=== PATIENT | female | born 1995 | race Caucasian/White ===

== ENCOUNTER → 2016-09-25 | Outpatient (CLI) | payer OTHER ==
--- NOTE | 2016-09-25 11:07 | REP ---
MR BRAIN WITHOUT AND WITH CONTRAST: HISTORY: Dizziness. CONTRAST: ProHance 12 mL. There are no areas of abnormal signal intensity in the brain. There is no intraparenchymal hemorrhage, infarct, mass, or midline shift. There is no abnormal enhancement. The ventricular system is normal in appearance. There is no extracerebral collection. The sinuses are clear. IMPRESSION: There is no intracranial lesion. Signed by Colin Esparza MD 09/25/2016 11:26 A
== END ==
LOC: M PLARAD 09:39
PROVIDERS: ATTEND Family Medicine
DX: R42 Dizziness and giddiness (principal); H53.9 Unspecified visual disturbance; R29.818 Other symptoms and signs involving the nervous system; R26.89 Other abnormalities of gait and mobility; Z82.0 Family history of epilepsy and other diseases of the nervous system

== ENCOUNTER → 2016-12-25 | Outpatient (REF) | payer OTHER | LOC: M SFHCWAGY 15:15 | PROVIDERS: ATTEND Nurse Practitioner Women's Health | DX: Z12.4 Encounter for screening for malignant neoplasm of cervix (principal) ==

== ENCOUNTER → 2018-07-11 | Outpatient (CLI) | payer OTHER ==
--- NOTE | 2018-07-11 14:11 | REP ---
OB ULTRASOUND: Real-time sonographic evaluation of gravid uterus performed utilizing transabdominal and endovaginal technique. There is a single living intrauterine gestation estimated gestational age 18 weeks, EDC 12/12/2018. Today's measurements indicate appropriate growth. BPD 40 mm = 18 weeks 2 days, 56th percentile HC 147 mm = 17 weeks 6 days, 45th percentile AC 127 mm = 18 weeks 2 days, 57th percentile Femur length 26 mm = 18 weeks 0 days, 48th percentile HC/AC ratio 1.16 within normal range. Estimated weight 224 grams 51st percentile. heart rate 150 beats per minute. SEEN/GROSSLY UNREMARKABLE Lateral ventricles Yes Posterior fossa Yes Upper lip No Four-chamber heart No LVOT Yes RVOT Yes Stomach Yes Cord insertion Yes Three vessel cord Yes Kidneys Yes Bladder Yes Spine Yes position: Variable. Placenta: Posterior and grade 0 with no previa or abruption. Placenta is low lying with the inferior tip 8 mm from the internal cervical os. Amniotic fluid within normal limits. Cervix is closed and measures 4.5 cm in length. Electronically Signed by Brandon Murphy MD 07/11/2018 05:42 P
== END ==
LOC: M RAD 10:43
PROVIDERS: ATTEND Obstetrics & Gynecology
DX: O44.42 Low lying placenta NOS or without hemorrhage, second trimester (principal); Z3A.18 18 weeks gestation of pregnancy

== ENCOUNTER → 2018-08-16 | Outpatient (CLI) | payer OTHER ==
--- NOTE | 2018-08-16 18:01 | REP ---
Clinical: Anatomical evaluation. Comparison: 07/11/2018 . Findings: Examination demonstrates a single live intrauterine in variable presentation. motion is identified by technologist. Placenta is noted posterior/left lateral and grade zero without evidence for placenta previa or abruption. Amniotic fluid volume is normal. Cervix measures 3.1 cm in length and appears closed. No evidence for nuchal cord. Gestational age by LMP 23 weeks 1 day with RENE 12/12/2018 . Gestational age by current measurements 23 weeks 1 day with RENE 12/12/2018 . FHR equals 155 beats per minute. Estimated weight 570 grams ( 47th percentile). Anatomical assessment demonstrates normal facial features and four-chamber heart. Impression: Single live intrauterine in variable presentation demonstrating appropriate interval growth. In conjunction with prior examination anatomical assessment is complete and normal. Electronically Signed by Demetrio Carranza MD 08/16/2018 05:52 P
== END ==
LOC: M RAD 16:53
PROVIDERS: ATTEND Advanced Practice Midwife
DX: Z34.02 Encounter for supervision of normal first pregnancy, second trimester (principal); Z36.89 Encounter for other specified antenatal screening; Z3A.23 23 weeks gestation of pregnancy

== ENCOUNTER → 2018-09-14 | Outpatient (CLI) | payer OTHER ==
[2018-09-14 11:31] LABS: HEMATOCRIT 33.2 % (36.0-47.0); HEMOGLOBIN 11.1 g/dl (12.0-15.5); MEAN CORPUSCULAR HEMOGLOBIN 30.8 pg (27.0-33.0); MEAN CORPUSCULAR HGB CONC 33.4 g/dl (32.0-36.5); MEAN CORPUSCULAR VOLUME 92.2 fl (80.0-96.0); PLATELET COUNT, AUTOMATED 215 10^3/uL (150-450); WHITE BLOOD COUNT 10.9 10^3/uL (4.0-10.0)
== END ==
LOC: M LAB 10:01
PROVIDERS: ATTEND Obstetrics & Gynecology
DX: Z34.02 Encounter for supervision of normal first pregnancy, second trimester (principal); Z3A.00 Weeks of gestation of pregnancy not specified

== ENCOUNTER 2018-10-27 18:31 | Emergency (ER) | payer OTHER ==
[~2018-10-27] VITALS: Ht 160 cm; Wt 82.3 kg
[2018-10-27] MEDS ORDERED: PREN1CHW6 PO (18:43)
[2018-10-27] MEDS ORDERED: NS 1,000 ML IV ONE (19:00)
[2018-10-27 19:17] LABS: BASO # 0.1 10^3/uL (0.0-0.2); BASO % 0.6 % (0.0-1.0); EOS # 0.1 10^3/uL (0.0-0.50); EOS % 0.8 % (0.0-3.0); HEMATOCRIT 31.8 % (36.0-47.0); HEMOGLOBIN 10.7 g/dl (12.0-15.5); LYMPH # 1.9 10^3/uL (1.5-6.5); LYMPH % 17.4 % (24.0-44.0); MEAN CORPUSCULAR HEMOGLOBIN 29.1 pg (27.0-33.0); MEAN CORPUSCULAR HGB CONC 33.6 g/dl (32.0-36.5); MEAN CORPUSCULAR VOLUME 86.4 fl (80.0-96.0); MONO # 0.9 10^3/uL (0.0-0.8); MONO % 8.5 % (0.0-5.0); NEUTROPHILS # 7.5 10^3/uL (1.8-7.7); NEUTROPHILS % 69.1 % (36.0-66.0); PLATELET COUNT, AUTOMATED 222 10^3/uL (150-450); RED BLOOD COUNT 3.68 10^6/uL (4.00-5.40); WHITE BLOOD COUNT 10.8 10^3/uL (4.0-10.0)
[2018-10-27 19:26] LABS: INR 1.03; PARTIAL THROMBOPLASTIN TIME 24.6 SECONDS (25.0-38.4); PROTHROMBIN TIME 13.2 SECONDS (11.8-14.0)
[2018-10-27 19:31] LABS: ALBUMIN 2.8 GM/DL (3.2-5.2); ALT/SGPT 16 U/L (12-78); BILIRUBIN,DIRECT 0.1 MG/DL (0.0-0.2); BILIRUBIN,TOTAL 0.2 MG/DL (0.2-1.0); BLOOD UREA NITROGEN 10 MG/DL (7-18); CALCIUM LEVEL 8.9 MG/DL (8.5-10.1); CARBON DIOXIDE LEVEL 22 MEQ/L (21-32); CHLORIDE LEVEL 109 MEQ/L (98-107); CREATININE FOR GFR 0.58 MG/DL (0.55-1.30); GLOMERULAR FILTRATION RATE > 60.0 (>60); GLUCOSE, FASTING 85 MG/DL (70-100); LIPASE 104 U/L (73-393); POTASSIUM SERUM 3.9 MEQ/L (3.5-5.1); SODIUM LEVEL 139 MEQ/L (136-145); TOTAL PROTEIN 6.4 GM/DL (6.4-8.2)
--- NOTE | 2018-10-27 20:41 | REPVR ---
EXAM: US Abdomen Limited EXAM DATE/TIME: 10/27/2018 8:06 PM CLINICAL HISTORY: 22 years old, female; ; Patient HX: Patient fell this evening, RT pelvic pain since; Additional info: Fast US - trauma TECHNIQUE: Imaging protocol: Real-time ultrasound of the abdomen with image documentation. Examination is focused on the region of clinical interest. COMPARISON: No relevant prior studies available. FINDINGS: Intraperitoneal space: No free fluid demonstrated in 4 quadrants of the abdomen. IMPRESSION: No free fluid demonstrated in 4 quadrants of the abdomen. Electronically signed by: Chang Ulloa On 10/27/2018 20:41:21 PM
--- NOTE | 2018-10-27 20:43 | REPVR ---
EXAM: US , Limited EXAM DATE/TIME: 10/27/2018 8:06 PM CLINICAL HISTORY: 22 years old, female; Pain; Other: Trauma; Gestational age or lmp: 33w; ; Additional info: Fall TECHNIQUE: Imaging protocol: Real-time ultrasound of the maternal uterus with image documentation. Exam focused on the clinical indication. COMPARISON: US OBS FOLL UP OR REPEAT EACH GES 08/16/2018 5:03 PM FINDINGS: GESTATION: Gestation: Intrauterine gestation. Heart rate: heart rate 141 beats per minute. Placenta: Posterior placenta. No placenta previa. Amniotic fluid: Amniotic fluid index 21.8 cm. DOPPLER: Umbilical artery Doppler: Umbilical cord Doppler demonstrates a peak systolic velocity of 40.7 cm/s, and diastolic velocity of 20 cm/s, S/D ratio of 2.04, and resistive index of 0.51. MATERNAL: Cervix: Cervix measures 4 cm. IMPRESSION: No abnormal findings. Electronically signed by: Chang Ulloa On 10/27/2018 20:43:20 PM
[2018-10-27 21:16] VITALS: BP 112/68
== END 2018-10-27 21:16 | disposition admitted as inpatient to this hospital (09) ==
LOC: M ED 18:31
DX: O9A.213 Injury, poisoning and certain other consequences of external causes complicating pregnancy, third trimester (principal); S30.1XXA Contusion of abdominal wall, initial encounter; W01.0XXA Fall on same level from slipping, tripping and stumbling without subsequent striking against object, initial encounter; Y92.481 Parking lot as the place of occurrence of the external cause; Z3A.33 33 weeks gestation of pregnancy; Z88.0 Allergy status to penicillin

== ENCOUNTER → 2018-10-27 | Outpatient (CLI) | payer OTHER ==
[~2018-10-27] VITALS: Ht 160 cm; Wt 82.9 kg
[~2018-10-27] MED LIST: PREN1CHW6 PO
[2018-10-27 21:38] VITALS: BP 117/70
== END ==
LOC: M LDO 21:15
PROVIDERS: ATTEND Obstetrics & Gynecology
DX: O9A.213 Injury, poisoning and certain other consequences of external causes complicating pregnancy, third trimester (principal); S39.91XA Unspecified injury of abdomen, initial encounter; W01.0XXA Fall on same level from slipping, tripping and stumbling without subsequent striking against object, initial encounter; Y92.9 Unspecified place or not applicable; Z3A.33 33 weeks gestation of pregnancy

== ENCOUNTER → 2018-11-03 | Outpatient (CLI) | payer OTHER ==
--- NOTE | 2018-11-03 18:48 | REP ---
HISTORY: Size greater than dates. Complete anatomical screen was performed on prior exams and showed no abnormalities. All interested parties should review the prior exams from this . Multiple ultrasonographic images of the gravid uterus show a single living intrauterine gestation in the cephalic presentation. Doppler interrogation of the heart shows a heart rate of 157 beats per minute. The placenta is posterior and not low lying. The subjective amniotic fluid volume is increased. The cervix measured 4 cm in length and is closed. Evaluation of the maternal adnexal spaces showed no abnormalities. The calculated amniotic fluid index is 27.3 which is above the upper limit of normal which is 24.8. BPD 8.8 cm = 35 weeks 4 days HC 32.2 cm = 36 weeks 3 days AC 30.4 cm = 34 weeks 2 days FL 7.0 cm = 35 weeks 6 days The estimated weight is 2464 grams which is at the 60th percentile for a 34 week 3 day gestational age. IMPRESSION: Single living intrauterine gestation as described above with an estimated gestational age of 35 weeks 1 day via composite criteria and an estimated date of delivery of 12/07/2018 by today's exam. There is evidence of polyhydramnios which should be correlated clinically with appropriate followup. Complete anatomical screening was performed on prior exams. Electronically Signed by Lai Landeros DO 11/03/2018 07:37 P
== END ==
LOC: M RAD 16:49
PROVIDERS: ATTEND Advanced Practice Midwife
DX: O26.843 Uterine size-date discrepancy, third trimester (principal); Z3A.35 35 weeks gestation of pregnancy

== ENCOUNTER → 2018-11-16 | Outpatient (REF) | payer OTHER | LOC: M LAB REF 16:57 | PROVIDERS: ATTEND Specialist | DX: Z34.03 Encounter for supervision of normal first pregnancy, third trimester (principal); Z3A.00 Weeks of gestation of pregnancy not specified ==

== ENCOUNTER 2018-11-26 21:54 | Inpatient (IN) | payer OTHER ==
[~2018-11-26] VITALS: Ht 160 cm; Wt 86.6 kg
[2018-11-26 22:26] VITALS: BP 133/89
[2018-11-26] MEDS ORDERED: TUMS750C22 PO (23:23)
[2018-11-26] MEDS ORDERED: LR 1,000 ML IV SCH (23:25)
[2018-11-26] MEDS ORDERED: OXYTOCIN DRIP 30 UNITS in APPROPRIATE DILUENT 1 EA IV SCH (23:30)
[2018-11-26 23:34] VITALS: BP 122/81
[2018-11-27] VITALS (27 sets, daily range): BP systolic 106–189; BP diastolic 61–114
[2018-11-27 00:10] LABS: HEMATOCRIT 30.1 % (36.0-47.0); HEMOGLOBIN 10.1 g/dl (12.0-15.5); MEAN CORPUSCULAR HEMOGLOBIN 28.7 pg (27.0-33.0); MEAN CORPUSCULAR HGB CONC 33.6 g/dl (32.0-36.5); MEAN CORPUSCULAR VOLUME 85.5 fl (80.0-96.0); PLATELET COUNT, AUTOMATED 251 10^3/uL (150-450); RED BLOOD COUNT 3.52 10^6/uL (4.00-5.40); WHITE BLOOD COUNT 9.3 10^3/uL (4.0-10.0)
[2018-11-27] MEDS ORDERED: FENTANYL 2MCG/ML ROPIVACAINE 0.2% IN 0.9% NACL 100ML IVBAG As Ordered ONE (02:33)
[2018-11-27] MEDS ORDERED: EPIDURAL COMMENT XX SCH (02:51)
[2018-11-27] MEDS ORDERED: NALOXONE INJ 0.4 MG/1 ML VIAL (J2310) IV PRN (02:51)
[2018-11-27] MEDS ORDERED: ONDANSETRON 4MG/2ML VIAL (J2405) IV PRN (02:51)
[2018-11-27] MEDS ORDERED: LACTATED RINGER'S 1000 ML IV PRN (02:51)
[2018-11-27] MEDS ORDERED: FENTANYL/ROPIVACAINE/NACL BAG 100 ML EPIDURAL SCH (02:51)
[2018-11-27] MEDS ORDERED: EPIDURAL/PCA KEYS XX PRN (02:51)
[2018-11-27] MEDS ORDERED: diphenhydrAMINE INJ 50MG/ML VIAL (J1200) IV PRN (02:51)
[2018-11-27] MEDS ORDERED: REFRIGERATOR IV KEYS XX PRN (02:51)
[2018-11-27] MEDS ORDERED: ePHEDrine SULFATE 25 MG/5 ML(5MG/ML) SYRINGE IV PRN (02:51)
[2018-11-27] MEDS ORDERED: OXYTOCIN 30 UNITS IN 0.9% NaCl 500ML IV BAG (J2590) As Ordered ONE (05:13)
[2018-11-27] MEDS ORDERED: OXYTOCIN DRIP 30 UNITS in APPROPRIATE DILUENT 1 EA IV SCH ×4 (05:28)
[2018-11-27] MEDS ORDERED: IBUPROFEN 600 MG TAB PO PRN (05:30)
[2018-11-27] MEDS ORDERED: MEASLES,MUMPS,RUBELLA VACCINE INJ (MMR-II) (90707) SC SCH (05:30)
[2018-11-27] MEDS ORDERED: ANUSOL HC CREAM 30GM TOP PRN (05:30)
[2018-11-27] MEDS ORDERED: RHOGAM 300 MCG (1500 IU) INJ (J2790) IM SCH (05:30)
[2018-11-27] MEDS ORDERED: METHYLERGONOVINE MALEATE 0.2 MG TAB PO PRN (05:30)
[2018-11-27] MEDS ORDERED: miSOPROStol 200 MCG TAB (S0191) PR ONE (05:30)
[2018-11-27] MEDS ORDERED: METHYLERGONOVINE MALEATE 0.2 MG/ML VIAL (J2210) IM PRN (05:30)
[2018-11-27] MEDS ORDERED: DOCUSATE SODIUM 100 MG CAP PO PRN (05:30)
[2018-11-27] MEDS ORDERED: ACETAMINOPHEN TAB 650MG DOSE (2X325MG) PO PRN (05:30)
[2018-11-27] MEDS ORDERED: IBUPROFEN 800 MG TAB PO PRN (05:30)
[2018-11-27] MEDS: ACETAMINOPHEN 500 MG TAB PO PRN ×3 (07:40→21:35)
[2018-11-27] MEDS ORDERED: ceFAZolin SOD 1 GM in D5W MINI-BAG PLUS 50 ML IV SCH (08:00)
[2018-11-27] MEDS: PRENATAL VITAMINS CHEWABLE TABLET PO SCH (09:54)
--- NOTE | 2018-11-27 11:20 | DN ---
DATE: 11/27/2018 TIME OF : 0442 GENDER: Male. SCORES: 9 and 9. WEIGHT: 3210 grams, 7 pounds 1 ounce. LACERATIONS: Right labial and first degree midline laceration. ESTIMATED BLOOD LOSS: 500 mL. ANESTHESIA: Epidural. COUNTS: Ten laparotomy sponges accounted for prior to and after delivery. One sharp removed from the delivery field. COMPLICATIONS: Uterine atony. DELIVERY NOTE: On 11/27/2018 at 0442 hours, Ms. Contreras, a 22-year-old, 1, now para 1 had a spontaneous vaginal delivery of a live born male infant, scores 9 and 9, weight was 7 pounds 1 ounce or 3210 grams was delivered followed by delivery of shoulders and corpus. The infant was handed to the mother with a good cry. Cord was clamped times two and was cut by the father of the baby under my direction. The placenta was then drained and delivered grossly intact. A premix bag of 500 mL of normal saline with 30 units of Pitocin was then boluses along with uterine massage. Uterine atony was suspected. Additional 1000 mg of misoprostol rectally and 0.2 mg of Methergine intramuscularly was given for uterine hemostasis. Hemostasis was then achieved. On inspection, there was a right labial laceration that was repaired with 3-0 Vicryl Rapide and first degree midline laceration repaired with 3-0 Vicryl Rapide. On reinspection, the cervix, vagina, and perineum were grossly intact and hemostatic. Mother and baby recovering in good condition. The couple has decided to name their son Yonatan Boothe IV.
--- NOTE | 2018-11-27 11:26 | HPE ---
DATE OF ADMISSION: 11/26/2018 REASON FOR ADMISSION: Premature rupture of membranes. HISTORY OF PRESENT ILLNESS: Ms. Contreras is a 22-year-old, 1, who presents at 37 weeks 5 days estimated gestational age by her last menstrual period and confirmed by first trimester ultrasound with complaints of leakage of clear fluid. She reports that at approximately 9:00 a.m. she had large amounts of clear fluid, followed by some irregular contractions. She denies any vaginal bleeding. She reports active movement. course has been remarkable for polyhydramnios with amniotic fluid at 27 cm, otherwise uncomplicated. She initiated care in the first trimester and was appropriate throughout. PAST MEDICAL HISTORY: None. PAST SURGICAL HISTORY: None. OBSTETRICAL HISTORY: She is 1. MEDICATIONS: - vitamins ALLERGIES: She has a childhood allergy of PENICILLIN, which caused a rash. She has taken amoxicillin without any issues. PHYSICAL EXAMINATION: VITAL SIGNS: Stable. She is afebrile. She has a category 1 heart rate tracing with some contractions on tocometer. GENERAL APPEARANCE: Well appearing. No acute distress. LUNGS: Clear to auscultation bilaterally. CARDIOVASCULAR: Heart has regular rate and rhythm. ABDOMEN: Gravid, nontender. Estimated weight 3200 grams. CERVICAL EXAM: She is 1 cm dilated, 50% effaced, -3 station, grossly ruptured. Blood type is A positive, antibody screen is negative. Rubella is immune. RPR is nonreactive. Hepatitis B surface antigen negative. HIV negative. Hepatitis C nonreactive. Chlamydia and gonorrhea negative. She had a 1 hour Glucola that was normal. She is Group B streptococcus (GBS) positive. ASSESSMENT: Ms. Contreras is a 22-year-old 1 at 37 weeks 5 days estimated gestational age with premature rupture of membranes. Reassuring status. PLAN: Admit to labor and delivery. CBC, RPR, type and screen. Antibiotics for GBS prophylaxis. The patient was counseled in regard to medication, as well as procedures performed in labor and delivery. She has also been verbally consented for emergency surgery, blood products, anesthesia and desires to proceed with admission.
[2018-11-27] MEDS: DIBUCAINE 1% OINTMENT 30GM TOP PRN (15:20)
[2018-11-28 06:00] VITALS: BP 95/55
[2018-11-28] MEDS: DIBUCAINE 1% OINTMENT 30GM TOP PRN (07:43)
[2018-11-28] MEDS: PRENATAL VITAMINS CHEWABLE TABLET PO SCH (07:44)
[2018-11-28] MEDS ORDERED: ACET-683 PO (09:37)
[2018-11-28] MEDS ORDERED: IBUP80TA PO (09:37)
== END 2018-11-28 15:05 | disposition home or self-care (01) | DRG 560 ==
LOC: M LDO 21:54 → M LDI 22:46 → M OBS 11-27 09:47
PROVIDERS: ADMIT Obstetrics & Gynecology; ATTEND Obstetrics & Gynecology
PROC: 10E0XZZ Delivery of Products of Conception, External Approach (ICD-10-PCS; principal; 2018-11-27)
PROC: 0HQ9XZZ Repair Perineum Skin, External Approach (ICD-10-PCS; 2018-11-27)
DX: O42.02 Full-term premature rupture of membranes, onset of labor within 24 hours of rupture (principal); Z3A.37 37 weeks gestation of pregnancy; Z37.0 Single live birth; O40.3XX0 Polyhydramnios, third trimester, not applicable or unspecified; O99.824 Streptococcus B carrier state complicating childbirth; O62.2 Other uterine inertia; O70.0 First degree perineal laceration during delivery

== ENCOUNTER → 2019-03-23 | Outpatient (REF) | payer SELFPAY ==
[~2019-03-23] MED LIST changes: +ACET-683 PO; +IBUP80TA PO; +TUMS750C22 PO
== END ==
LOC: M SFHCWAGY 14:17
PROVIDERS: ATTEND Advanced Practice Midwife
DX: Z12.4 Encounter for screening for malignant neoplasm of cervix (principal)

== ENCOUNTER → 2019-04-19 | Outpatient (REF) | payer SELFPAY ==
[2019-04-20 12:43] LABS: CHLAMYDIA DNA AMPLIFICATION NEGATIVE (NEGATIVE); GC DNA AMPLIFICATION NEGATIVE (NEGATIVE)
== END ==
LOC: M SFHCWAGY 10:48
PROVIDERS: ATTEND Advanced Practice Midwife
DX: Z30.430 Encounter for insertion of intrauterine contraceptive device (principal)

== ENCOUNTER → 2020-11-19 | Outpatient (CLI) | payer OTHER ==
[2020-11-19 16:54] LABS: BASO # 0.1 10^3/uL (0.0-0.2); BASO % 0.8 % (0.0-1.0); EOS # 0.1 10^3/uL (0.0-0.5); EOS % 1.7 % (0.0-3.0); HEMOGLOBIN 13.2 g/dl (12.0-15.5); LYMPH % 30.3 % (24.0-44.0); MEAN CORPUSCULAR HEMOGLOBIN 29.3 pg (27.0-33.0); MEAN CORPUSCULAR VOLUME 88.9 fl (80.0-96.0); MONO # 0.4 10^3/uL (0.0-0.8); MONO % 6.8 % (2.0-8.0); NEUTROPHILS # 3.9 10^3/uL (1.5-8.5); NEUTROPHILS % 60.1 % (36.0-66.0); PLATELET COUNT, AUTOMATED 269 10^3/uL (150-450); WHITE BLOOD COUNT 6.5 10^3/uL (4.0-10.0)
[2020-11-19 17:24] LABS: ALBUMIN 3.7 GM/DL (3.2-5.2); ALT/SGPT 27 U/L (12-78); BILIRUBIN,TOTAL 0.6 MG/DL (0.2-1.0); BLOOD UREA NITROGEN 13 MG/DL (7-18); CALCIUM LEVEL 8.8 MG/DL (8.5-10.1); CARBON DIOXIDE LEVEL 26 MEQ/L (21-32); CHLORIDE LEVEL 108 MEQ/L (98-107); CREATININE FOR GFR 0.66 MG/DL (0.55-1.30); FERRITIN 54 NG/ML (8-252); FREE T4 1.02 NG/DL (0.76-1.46); GLOMERULAR FILTRATION RATE > 60.0 (>60); GLUCOSE, FASTING 84 MG/DL (70-100); POTASSIUM SERUM 4.3 MEQ/L (3.5-5.1); SODIUM LEVEL 138 MEQ/L (136-145); TOTAL PROTEIN 7.1 GM/DL (6.4-8.2)
== END ==
LOC: M WUC 09:57
PROVIDERS: ATTEND Physician Assistant
DX: R53.83 Other fatigue (principal); H81.10 Benign paroxysmal vertigo, unspecified ear

== ENCOUNTER → 2021-08-12 | Outpatient (REF) | payer OTHER | LOC: M PLALAB 13:06 | PROVIDERS: ATTEND Advanced Practice Midwife | DX: Z34.91 Encounter for supervision of normal pregnancy, unspecified, first trimester (principal) ==

== ENCOUNTER 2021-08-19 06:48 | Day surgery (SDC) | payer OTHER ==
[~2021-08-19] VITALS: Ht 160 cm; Wt 69.9 kg
[2021-08-19] MEDS ORDERED: LIDOCAINE 1% MDV 20ML VIAL As Ordered ONE (07:10)
[2021-08-19] MEDS ORDERED: LIDOCAINE 2% 100MG/5ML SDV (FOR ANES.) As Ordered ONE (07:21)
[2021-08-19] MEDS ORDERED: propofoL 200 MG/20 ML VIAL As Ordered ONE (07:21)
[2021-08-19] MEDS ORDERED: fentaNYL 100 MCG/2 ML INJECTION As Ordered ONE (07:22)
[2021-08-19] MEDS ORDERED: MIDAZOLAM INJ 2MG/2ML VIAL (J2250 PER 1MG) As Ordered ONE (07:22)
[2021-08-19] MEDS ORDERED: ONDANSETRON 4MG/2ML VIAL As Ordered ONE (07:25)
[2021-08-19] MEDS ORDERED: METOCLOPRAMIDE INJ 10MG/2ML VIAL (J2765 PER 1) As Ordered ONE (07:25)
[2021-08-19] MEDS ORDERED: dexameTHASONE 4 MG/ML 1ML VIAL (J1100 PER 1MG) As Ordered ONE (07:25)
[2021-08-19] MEDS ORDERED: KETOROLAC 60MG 2ML VIAL As Ordered ONE (07:25)
[2021-08-19 08:02] LABS: HEMATOCRIT 35.9 % (36.0-47.0); HEMOGLOBIN 12.2 g/dl (12.0-15.5); MEAN CORPUSCULAR VOLUME 85.5 fl (80.0-96.0); PLATELET COUNT, AUTOMATED 200 10^3/uL (150-450); WHITE BLOOD COUNT 7.6 10^3/uL (4.0-10.0)
[2021-08-19] MEDS ORDERED: INSULIN LISPRO (NovoLOG) PER UNIT SC PRN (08:15)
[2021-08-19] MEDS ORDERED: LR 1,000 ML IV SCH ×2 (08:15→08:40)
[2021-08-19] MEDS ORDERED: ACETAMINOPHEN 500 MG TAB PO ONE (08:40)
[2021-08-19] MEDS ORDERED: DOXYCYCLINE HYCLATE 100MG TABLET PO ONE (08:40)
[2021-08-19 09:23] VITALS: BP 126/73
== END 2021-08-19 09:58 | disposition home or self-care (01) ==
LOC: M SDC 06:48
PROVIDERS: ATTEND Specialist
DX: O02.1 Missed abortion (principal); Z88.0 Allergy status to penicillin
CPT/HCPCS: 59820; 85027; 87426; 88305; J1100; J1885; J2250; J2405; J2765; J3010

== ENCOUNTER → 2022-05-27 | Outpatient (CLI) | payer OTHER | LOC: M LAB 16:42 | PROVIDERS: ATTEND Advanced Practice Midwife | DX: O20.0 Threatened abortion (principal); Z3A.00 Weeks of gestation of pregnancy not specified ==

== ENCOUNTER → 2022-05-29 | Outpatient (CLI) | payer OTHER | LOC: M LAB 16:40 | PROVIDERS: ATTEND Advanced Practice Midwife | DX: O20.0 Threatened abortion (principal); Z3A.00 Weeks of gestation of pregnancy not specified ==

== ENCOUNTER → 2022-08-24 | Outpatient (CLI) | payer OTHER ==
[2022-08-24 18:00] LABS: HEMATOCRIT 36.4 % (36.0-47.0); HEMOGLOBIN 12.3 g/dl (12.0-15.5); MEAN CORPUSCULAR HEMOGLOBIN 29.5 pg (27.0-33.0); MEAN CORPUSCULAR HGB CONC 33.8 g/dl (32.0-36.5); MEAN CORPUSCULAR VOLUME 87.3 fl (80.0-96.0); PLATELET COUNT, AUTOMATED 324 10^3/uL (150-450); RED BLOOD COUNT 4.17 10^6/uL (4.00-5.40); WHITE BLOOD COUNT 10.3 10^3/uL (4.0-10.0)
[2022-08-24 18:49] LABS: HIV 1&2 SCREEN NEGATIVE (NEGATIVE)
[2022-08-24 18:58] LABS: HEPATITIS C VIRUS ABY INDEX 0.1 INDEX (<0.8)
== END ==
LOC: M PLALAB 14:12
PROVIDERS: ATTEND Advanced Practice Midwife
DX: Z34.81 Encounter for supervision of other normal pregnancy, first trimester (principal)

== ENCOUNTER → 2022-09-07 | Outpatient (REF) | payer OTHER ==
[2022-09-07 13:30] LABS: GC DNA AMPLIFICATION NEGATIVE (NEGATIVE)
== END ==
LOC: M SFHCWAGY 09:51
PROVIDERS: ATTEND Advanced Practice Midwife
DX: Z34.91 Encounter for supervision of normal pregnancy, unspecified, first trimester (principal)

== ENCOUNTER → 2022-11-05 | Outpatient (CLI) | payer OTHER | LOC: M WHC 14:55 | PROVIDERS: ATTEND Advanced Practice Midwife | DX: Z34.92 Encounter for supervision of normal pregnancy, unspecified, second trimester (principal); Z3A.19 19 weeks gestation of pregnancy ==

== ENCOUNTER → 2022-12-10 | Outpatient (CLI) | payer OTHER | LOC: M WHC 06:39 | PROVIDERS: ATTEND Obstetrics & Gynecology | DX: Z36.2 Encounter for other antenatal screening follow-up (principal) ==

== ENCOUNTER → 2022-12-28 | Outpatient (CLI) | payer OTHER ==
[2022-12-28 08:26] LABS: HEMATOCRIT 30.3 % (36.0-47.0); HEMOGLOBIN 10.3 g/dl (12.0-15.5); MEAN CORPUSCULAR HEMOGLOBIN 30.3 pg (27.0-33.0); MEAN CORPUSCULAR VOLUME 89.1 fl (80.0-96.0); PLATELET COUNT, AUTOMATED 233 10^3/uL (150-450); WHITE BLOOD COUNT 7.5 10^3/uL (4.0-10.0)
== END ==
LOC: M LAB 06:11
PROVIDERS: ATTEND Obstetrics & Gynecology
DX: Z34.92 Encounter for supervision of normal pregnancy, unspecified, second trimester (principal); Z3A.00 Weeks of gestation of pregnancy not specified

== ENCOUNTER → 2023-01-05 | Outpatient (CLI) | payer OTHER | LOC: M LAB 06:26 | PROVIDERS: ATTEND Obstetrics & Gynecology | DX: R73.09 Other abnormal glucose (principal) ==

== ENCOUNTER → 2023-10-19 | Outpatient (REF) | payer OTHER ==
[~2023-10-19] MED LIST changes: +COLA100C5 PO; +IBUP-1022 PO; +OXYC-517 PO
== END ==
LOC: M SFHCWAGY 17:49
PROVIDERS: ATTEND Obstetrics & Gynecology
DX: Z12.4 Encounter for screening for malignant neoplasm of cervix (principal)

== ENCOUNTER 2025-01-26 14:33 | Day surgery (SDC) | payer OTHER ==
[~2025-01-26] VITALS: Ht 160 cm; Wt 72.5 kg
[~2025-01-26 14:33] MED LIST changes: -IBUP-1022 PO; +IBUP600T42 PO
[2025-01-26] MEDS ORDERED: LIDOCAINE 2% 100 MG/5 ML SDV (FOR ANES.) As Ordered ONE (16:01)
[2025-01-26] MEDS ORDERED: MIDAZOLAM INJ 2 MG/2 ML VIAL As Ordered ONE (16:02)
[2025-01-26] MEDS ORDERED: SUCCINYLCHOLINE 100MG/5ML SYRINGE As Ordered ONE (16:13)
[2025-01-26] MEDS: DOXYCYCLINE HYCLATE 100 MG TABLET PO ONE (16:14)
[2025-01-26] MEDS ORDERED: dexAMETHasone 4 MG/ML 1 ML VIAL As Ordered ONE (16:18)
[2025-01-26] MEDS ORDERED: KETOROLAC 30 MG/ML 1 ML VIAL As Ordered ONE (16:18)
[2025-01-26] MEDS ORDERED: ONDANSETRON 4MG/2ML VIAL As Ordered ONE (16:18)
[2025-01-26] MEDS: SILVER NITRATE APPLICATOR (1 = QTY 10) As Ordered ONE (16:49)
[2025-01-26] MEDS ORDERED: HYDROMORPHONE HCL 0.5 MG/0.5 ML SYRINGE IV PRN (16:55)
[2025-01-26] MEDS ORDERED: ONDANSETRON 4MG/2ML VIAL IV PRN (16:55)
[2025-01-26 18:33] VITALS: BP 109/74; TEMP 97.9; O2SAT 100
== END 2025-01-26 18:35 | disposition home or self-care (01) ==
LOC: M SDC 14:33
PROVIDERS: ATTEND Student in an Organized Health Care Education/Training Program
DX: O02.1 Missed abortion (principal)
CPT/HCPCS: 59820; 76857; 88305; J0330; J1100; J1885; J2250; J2405; J2765; J3010; S0191